=== PATIENT | female | born 1970 | race Caucasian/White ===

== ENCOUNTER 2018-10-20 06:49 | Day surgery (SDC) | payer OTHER ==
[~2018-10-20 06:49] MED LIST: ACETAMINOPHEN 1,000 MG/100 ML BTL IV ONE; CEFAZOLIN 2 Gram 2 GM/50 ML BAG IVPB ONE
[2018-10-20] MEDS ORDERED: SEVOFLURANE 250 ML INH ONE (06:50)
[2018-10-20] MEDS ORDERED: LIDOCAINE 2% MDV (20MG/ML) 20ML VIAL IV ONE (06:50)
[2018-10-20] MEDS ORDERED: FENTANYL PF 100MCG/2ML VIAL IV ONE (06:50)
[2018-10-20] MEDS ORDERED: MIDAZOLAM HCL 2MG/2ML VIAL IV ONE (06:50)
[2018-10-20] MEDS ORDERED: ONDANSETRON HCL IV 4 MG/2 ML VIAL IVP ONE (06:50)
[2018-10-20] MEDS ORDERED: PROPOFOL 10 MG/ML VIAL IV ONE (06:50)
[2018-10-20] MEDS ORDERED: DEXAMETHASONE 4 MG/ML 1ML VIAL IVP ONE (06:50)
[2018-10-20] MEDS ORDERED: HYDROCODONE/APAP 7.5/325MG TABLET PO ONE (06:50)
[2018-10-20] MEDS ORDERED: BUPIVACAINE 0.5% W/EPI MPF 30 ML VIAL SQ ONE (10:00)
--- NOTE | 2018-10-21 09:41 | Operative Note ---
DATE OF SURGERY: 10/20/2018 PREOPERATIVE DIAGNOSIS: Campos fracture, left 5th metatarsal. POSTOPERATIVE DIAGNOSIS: Campos fracture, left 5th metatarsal. OPERATION: Open reduction and internal fixation of left 5th metatarsal with 4.0 cannulated screw. Staff Surgeon: Juan Monzon MD Anesthesia: General. Preparation: Chloraprep. Individual Considerations: None. PROCEDURE: The patient was taken to the operating room and placed supine on the operating room table. She had a successful induction of a general anesthetic. Her left lower extremity was prepped and draped in the usual fashion. The patient had a guide pin for the 4.0 cannulated screw placed starting at the tip at the base of the 5th metatarsal and then into the shaft. This was done by fluoroscopy. I went ahead and reamed the proximal portion with the shank reamer and then placed a 46 mm cannulated screw to give compressive osteosynthesis across the fracture site as verified by fluoroscopy. After irrigation, the skin was closed with shaun. I did have to open the skin with a knife and make about a centimeter incision. I then infiltrated the skin, subcu, and fracture site with 0.5% Marcaine with epinephrine and a sterile dressing was applied. She was taken back to recovery in good condition. There were no complications. PAVEL
== END 2018-10-20 09:19 | disposition home or self-care (01) ==
LOC: SUR 06:49
PROVIDERS: ATTEND Orthopaedic Surgery
DX: S92.352A Displaced fracture of fifth metatarsal bone, left foot, initial encounter for closed fracture (principal); J44.9 Chronic obstructive pulmonary disease, unspecified; E03.9 Hypothyroidism, unspecified; K21.9 Gastro-esophageal reflux disease without esophagitis
CPT/HCPCS: J2405